=== PATIENT | female | born 1955 | race Caucasian/White ===

== ENCOUNTER → 2017-08-31 | Outpatient (CLI) | payer OTHER | END | disposition home or self-care (01) | LOC: SLP 20:25 | PROVIDERS: ATTEND Family Medicine | DX: G47.33 Obstructive sleep apnea (adult) (pediatric) (principal) | CPT/HCPCS: 95810 ==

== ENCOUNTER → 2017-09-22 | Outpatient (CLI) | payer OTHER | END | disposition home or self-care (01) | LOC: RAH 12:39 | PROVIDERS: ATTEND Internal Medicine Endocrinology, Diabetes & Metabolism | DX: E04.2 Nontoxic multinodular goiter (principal) | CPT/HCPCS: 76536 ==

== ENCOUNTER → 2018-09-21 | Outpatient (CLI) | payer OTHER ==
[2018-09-21 13:42] LABS: T4 (THYROXINE) 8.3 ug/dL (4.7-13.3); THYROID STIMULATING HORMONE 1.65 uIU/mL (0.36-3.74)
== END | disposition home or self-care (01) ==
LOC: RAH 12:44
PROVIDERS: ATTEND Internal Medicine Endocrinology, Diabetes & Metabolism
DX: E04.2 Nontoxic multinodular goiter (principal)
CPT/HCPCS: 36415; 76536; 84436; 84439; 84443

== ENCOUNTER → 2019-09-20 | Outpatient (CLI) | payer OTHER ==
[2019-09-20 12:01] LABS: THYROID STIMULATING HORMONE 1.43 uIU/mL (0.36-3.74)
== END | disposition home or self-care (01) ==
LOC: RAH 10:54
PROVIDERS: ATTEND Internal Medicine Endocrinology, Diabetes & Metabolism
DX: E04.2 Nontoxic multinodular goiter (principal)
CPT/HCPCS: 36415; 76536; 84439; 84443

== ENCOUNTER → 2020-06-05 | Outpatient (CLI) | payer MEDICARE | END | disposition home or self-care (01) | LOC: RAH 08:44 | PROVIDERS: ATTEND Family Medicine | DX: M47.812 Spondylosis without myelopathy or radiculopathy, cervical region (principal); M50.30 Other cervical disc degeneration, unspecified cervical region | CPT/HCPCS: 72141 ==

== ENCOUNTER → 2020-07-05 | Outpatient (CLI) | payer MEDICARE | END | disposition home or self-care (01) | LOC: RAH 12:52 | PROVIDERS: ATTEND Orthopaedic Surgery | DX: M65.9 Synovitis and tenosynovitis, unspecified (principal); M75.51 Bursitis of right shoulder; M77.8 Other enthesopathies, not elsewhere classified | CPT/HCPCS: 73221 ==

== ENCOUNTER → 2020-09-18 | Outpatient (CLI) | payer MEDICARE ==
[2020-09-18 12:18] LABS: THYROID STIMULATING HORMONE 1.32 uIU/mL (0.36-3.74)
== END | disposition home or self-care (01) ==
LOC: RAH 10:51
PROVIDERS: ATTEND Internal Medicine Endocrinology, Diabetes & Metabolism
DX: E04.2 Nontoxic multinodular goiter (principal)
CPT/HCPCS: 36415; 76536; 84439; 84443

== ENCOUNTER 2022-01-01 11:00 | Emergency (ER) | payer MEDICARE ==
[~2022-01-01] VITALS: Ht 165.1 cm; Wt 70.3 kg
[2022-01-01 11:32] LABS: APPEARANCE,URINE CLEAR (CLEAR); BILIRUBIN,URINE NEGATIVE (NEGATIVE); COLOR,URINE YELLOW (YELLOW); GLUCOSE, URINE (UA) NEGATIVE (NEGATIVE); KETONES,URINE NEGATIVE (NEGATIVE); LEUKOCYTE ESTERASE ,URINE NEGATIVE (NEGATIVE); NITRATE,URINE NEGATIVE (NEGATIVE); OCCULT BLOOD,URINE NEGATIVE (NEGATIVE); PH,URINE 6.5 (5.0-8.0); PROTEIN,URINE NEGATIVE (NEGATIVE); UROBILINOGEN,URINE 0.2 mg/dL (0.2-1.0)
[2022-01-01] MEDS ORDERED: ONDANSETRON 4MG INJ IVP ONE (12:00)
[2022-01-01] MEDS ORDERED: KETOROLAC 30MG VIAL (30MG/ML) IVP ONE (12:00)
[2022-01-01 12:09] LABS: BASOPHILS % (AUTO) 0.1 % (0.0-5.0); EOSINOPHILS % (AUTO) 0.8 % (0.0-8.0); HEMATOCRIT 36.7 % (36-48); LYMPHOCYTES % (AUTO) 16.9 % (21.0-51.0); MEAN CORPUSCULAR HGB CONC 33.5 g/dL (32.0-36.0); MEAN CORPUSCULAR VOLUME 92.4 fL (79-99); MONOCYTES % (AUTO) 6.3 % (3.0-13.0); NEUTROPHILS % (AUTO) 75.6 % (40.0-77.0); PLATELET COUNT (AUTO) 185 K/uL (130-400); RED BLOOD CELL COUNT(AUTO) 3.97 MIL/uL (4.00-5.50); RED CELL DISTRIBUTION WIDTH 13.2 % (11.0-15.5); WHITE BLOOD COUNT (AUTO) 9.7 K/uL (4.8-10.8)
[2022-01-01 12:24] LABS: CARBON DIOXIDE 30 mmol/L (21-32); CHLORIDE 103 mmol/L (101-111); CREATININE 0.5 mg/dL (0.5-1.5); GLOMERULAR FILTR. RATE CALC 131 mL/min (>60); GLUCOSE,RANDOM 97 mg/dL (70-105); POTASSIUM 3.5 mmol/L (3.5-5.1); SODIUM SERUM 139 mmol/L (136-145); UREA NITROGEN, BLOOD 9 mg/dL (7-18)
[2022-01-01 12:28] LABS: ALANINE AMINOTRANSFERASE 24 U/L (12-78); ALBUMIN 3.7 g/dL (3.5-5.0); ASPARTATE AMINOTRANSFERASE 17 U/L (10-37); TOTAL PROTEIN, SERUM 7.5 g/dL (6.0-8.3)
[2022-01-01 12:43] LABS: LIPASE < 50 U/L (114-286)
[2022-01-01] MEDS ORDERED: MAGNESIUM CITRATE 296 ML SOLUTION PO ONE (13:30)
[2022-01-01] MEDS ORDERED: LACTULOSE 20 GM/30 ML UDCUP PO ONE (13:30)
[2022-01-01] MEDS ORDERED: LEVOFLOXACIN 500 MG TABLET PO SCH (13:30)
[2022-01-01] MEDS ORDERED: METRONIDAZOLE 500 MG TABLET PO SCH (13:30)
[2022-01-01] MEDS ORDERED: LACT10PA5 PO (13:43)
[2022-01-01] MEDS ORDERED: LEVO-70 PO (13:43)
[2022-01-01] MEDS ORDERED: METR375C2 PO (13:43)
[2022-01-01] MEDS ORDERED: DICY20TA2 PO (13:43)
[2022-01-01] MEDS ORDERED: ACETAMINOPHEN 500 MG TABLET PO ONE (14:00)
[2022-01-01 14:28] VITALS: BP 134/78
[2022-01-01] MEDS ORDERED: FLUC100T PO (14:39)
== END 2022-01-01 14:45 | disposition home or self-care (01) ==
LOC: EDH 11:00
DX: K57.32 Diverticulitis of large intestine without perforation or abscess without bleeding (principal); K59.01 Slow transit constipation; J45.909 Unspecified asthma, uncomplicated; Z90.49 Acquired absence of other specified parts of digestive tract
CPT/HCPCS: 99285; 74176; 96374; 71045; 96375; 84484; 80053; 83690; 85025; 86140; 81003; 36415; J2405; J1885

== ENCOUNTER → 2022-10-02 | Outpatient (CLI) | payer MEDICARE ==
[~2022-10-02] MED LIST: DICY20TA2 PO; FLUC100T PO; LACT10PA5 PO; LEVO-70 PO; METR375C2 PO
== END | disposition home or self-care (01) ==
LOC: RAH 12:20
PROVIDERS: ATTEND Internal Medicine Endocrinology, Diabetes & Metabolism
DX: E04.2 Nontoxic multinodular goiter (principal)
CPT/HCPCS: 76536

== ENCOUNTER 2023-02-23 20:57 | Emergency (ER) | payer MEDICARE ==
[~2023-02-23] VITALS: Ht 165.1 cm; Wt 76.2 kg
[2023-02-23] MEDS ORDERED: MORPHINE 4 MG SYG ONE (21:11)
[2023-02-23] MEDS ORDERED: MORPHINE 4 MG SYG IVP STA (21:15)
[2023-02-23] MEDS ORDERED: KETOROLAC 15MG/ML VIAL (15MG/ML) ONE (21:30)
[2023-02-23] MEDS ORDERED: FAMOTIDINE 20MG VIAL IV ONE (21:30)
[2023-02-23] MEDS ORDERED: KETOROLAC 30MG VIAL (30MG/ML) IVP ONE (21:30)
[2023-02-23] MEDS ORDERED: CYCL10TA16 PO (23:25)
[2023-02-23] MEDS ORDERED: MELO-106 PO (23:25)
[2023-02-23 23:28] VITALS: BP 137/64; PULSE 78; RESP 16; O2SAT 98
== END 2023-02-23 23:43 | disposition home or self-care (01) ==
LOC: EDH 20:57
DX: S39.012A Strain of muscle, fascia and tendon of lower back, initial encounter (principal); S30.0XXA Contusion of lower back and pelvis, initial encounter; W01.10XA Fall on same level from slipping, tripping and stumbling with subsequent striking against unspecified object, initial encounter; Y93.89 Activity, other specified; Y92.89 Other specified places as the place of occurrence of the external cause; Y99.8 Other external cause status
CPT/HCPCS: 99284; 96374; 96375; 72100; 72170; 72220; J3490; J2270; J1885

== ENCOUNTER → 2024-09-29 | Outpatient (CLI) | payer MEDICARE, OTHER ==
[~2024-09-29] MED LIST changes: +CYCL10TA16 PO; +MELO-106 PO
--- NOTE | 2024-09-29 14:13 | HMCIMG ---
THYROID ULTRASOUND History: Nodule Comparison: October 02, 2022 Findings: The examination shows homogeneous echotexture of the thyroid lobes. Bilateral thyroid nodules are seen, the largest within the left thyroid lower pole measuring 2.4 x 2.7 cm, significantly smaller than on prior examination where it measured 3.4 x 2.1 cm, and which has been biopsied, with benign histology results. Additional nodules of the left thyroid lobe upper pole seen measuring 6 and 5 mm, and also the right thyroid measuring 5, 11, 2 and 10 mm respectively. All are probably benign. No fluid collections are seen. IMPRESSION: Stable or probably benign nodules. Further follow-up in one year recommended.
== END | disposition home or self-care (01) ==
LOC: RAH 12:34
PROVIDERS: ATTEND Internal Medicine Endocrinology, Diabetes & Metabolism
DX: E04.2 Nontoxic multinodular goiter (principal)
CPT/HCPCS: 76536